=== PATIENT | male | born 1995 | race Two or more races ===

== ENCOUNTER 2016-12-21 23:27 | Emergency (ER) | payer OTHER ==
[~2016-12-21] VITALS: Ht 195.6 cm; Wt 100.7 kg
[2016-12-22] MEDS ORDERED: IPRATROPIUM BROM 0.5 MG/2.5ML INH SOL NEB ONE
[2016-12-22] MEDS ORDERED: ALBUTEROL SULF 2.5 MG/0.5ML(0.5%) NEB SOLN NEB ONE
[2016-12-22 01:14] VITALS: BP 147/91
== END 2016-12-22 02:01 | disposition home or self-care (01) ==
LOC: ER 23:31
DX: J45.909 Unspecified asthma, uncomplicated (principal)
CPT/HCPCS: 71020; 94640